=== PATIENT | male | born 1995 | race Caucasian/White ===

== ENCOUNTER 2019-03-09 07:13 | Emergency (ER) | payer OTHER, SELFPAY ==
[2018-06-30 12:09] VITALS: BMI 22.7
[2019-03-09 07:14] VITALS: BP 117/76; PULSE 75; RESP 18; TEMP 36.6; O2SAT 100; BMI 24.3
--- NOTE | 2019-03-09 07:16 | NURSING ---
NO OLD EKGS
--- NOTE | 2019-03-09 07:52 | RAD_ITS ---
STUDY: X-RAY CHEST REASON FOR EXAM: Male, 23 years old. Chest pain. TECHNIQUE: PA and lateral views of the chest. COMPARISON: None. FINDINGS: EKG electrodes are seen. The lungs are clear and expanded. There is no demonstrated pleural abnormality. Normal size heart. Normal mediastinum and reji. Normal visualized pulmonary arteries. Normal visualized aortic arch and descending thoracic aorta. Normal visualized thoracic spine. Normal visualized ribs, clavicles, and shoulders. There is no demonstrated abnormality of the visualized soft tissue structures of the upper abdomen. RAD/Chest PA and Lateral IMPRESSION: Normal x-ray examination of the chest. Electronically Signed: Tutu Ortega, at 8:13 EDT , Service support ,
--- NOTE | 2019-03-09 07:55 | EKG12_ITS ---
Test Reason : CP Blood Pressure : / mmHG Vent. Rate : 062 BPM Atrial Rate : 062 BPM P-R Int : 112 ms QRS Dur : 100 ms QT Int : 388 ms P-R-T Axes : 057 078 063 degrees QTc Int : 393 ms Normal sinus rhythm Normal ECG Confirmed by OCTAVIO DUNBAR, DREW ([id number]), supervising editor trailer CASH DENNEY ([id number]) on 03/15/2019 10:32:04 AM Referred By: ERICA Confirmed By:MONIQUE CUNNINGHAM MD
[2019-03-09 08:13] VITALS: BP 117/66; PULSE 63; RESP 16; O2SAT 100
--- NOTE | 2019-03-09 08:35 | ED.VISSUMM ---
- ER Visit Summary Date of Service: 03/09/19 Chief Complaint: [Chest pain] History of Present Illness: The patient is a 23 M [presents to the emergency department with complaint of chest pain that started 3 to 4 days ago and is been intermittent. Patient states the pain will last up to 15 minutes at a time. He describes it as left-sided and a squeezing sensation. Patient states that actually has had similar type pain going on for 5 years off and on. He does have a history of some anxiety. He denies recent travel or surgery. He does have a family history of heart disease and that his father required cardiac stenting in his 40s. Patient denies any fever or cough.] Patient states that currently his pain is resolved. The pain is not exertional. Patient states that at times taking a deep breath actually makes it feel better. Physical Examination: [HEENT-PERRLA, EOMI. Cranial nerves II through XII grossly intact. TMs clear. Mucous membranes moist. No adenopathy. Cardiovascular-regular rate and rhythm without murmur or ectopy Lungs-clear to auscultation, chest wall stable without crepitus or subcu emphysema Abdomen-normoactive bowel sounds, soft, nontender, no rebound or rigidity, no peritoneal signs. Extremities-intact ?4, normal range of motion, normal pulses, atraumatic] Test Results: [EKG obtained on arrival showed a sinus rhythm with a ventricular rate of 62 bpm with no acute segment changes. Chest x-ray was normal.] Emergency Department Course and Treatment: [] Treatment Plan: [Be referred to primary care physician electronic security specialist for no doc for follow-up within next 5 to 7 days. At this point I do not feel his chest pain is cardiac and most likely is anxiety related versus chest wall type pain.] Disposition: [Discharged home in stable condition.] Impression: [Chest pain etiology uncertain This note was generated with [employer] dictation software. It may contain incorrect words, spelling, and punctuation that were not noted in review of the chart prior to signing ED Disposition - Plan for ED Patient: Referrals: Care Physician,No Primary [Primary Care Provider] -
--- NOTE | 2019-03-09 08:37 | ED.DEP ---
ED Disposition - Plan for ED Patient: Instructions: CHEST PAIN, Uncertain Cause Referrals: Care Physician,No Primary [Primary Care Provider] - Rom Baker MD [STAFF PHYSICIAN] - 5-7 Days
[2019-03-09 08:45] VITALS: BP 118/70; PULSE 67; RESP 24; O2SAT 99
== END 2019-03-09 08:45 | disposition home or self-care (01) ==
LOC: ED 07:49
PROVIDERS: Emergency Provider Emergency Medicine
DX: R07.9 Chest pain, unspecified (principal); F41.9 Anxiety disorder, unspecified; Z82.49 Family history of ischemic heart disease and other diseases of the circulatory system
CPT/HCPCS: 71046; 93005; 99282